=== PATIENT | male | born 1975 | race American Indian/Alaskan Native ===

== ENCOUNTER 2017-06-03 05:50 | Emergency (ER) | payer OTHER ==
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
[2017-06-03 10:24] VITALS: BP 164/89
== END 2017-06-03 10:37 | disposition home or self-care (01) ==
LOC: ED 05:50
DX: G44.309 Post-traumatic headache, unspecified, not intractable (principal); S00.91XA Abrasion of unspecified part of head, initial encounter; Z88.0 Allergy status to penicillin; V89.2XXA Person injured in unspecified motor-vehicle accident, traffic, initial encounter; Y93.89 Activity, other specified; Y92.89 Other specified places as the place of occurrence of the external cause; Y99.8 Other external cause status
CPT/HCPCS: 70450; 93005; 93010; 99283